=== PATIENT | male | born 1965 | race Caucasian/White ===

== ENCOUNTER 2018-12-01 14:25 | Emergency (ER) | payer MEDICARE, OTHER ==
[2018-12-01 14:37] VITALS: RESP 16; TEMP 98.2
[2018-12-01] MEDS ORDERED: LIDOCAINE 1% INJ 10MG/ML (20 ML MDV) SQ ONE (15:53)
[2018-12-01] MEDS ORDERED: DIPH,PERTUS(ACELL)TETVAC-LF 0.5 ML VIAL IM ONE (15:53)
[2018-12-01] MEDS ORDERED: ceFAZolin 1,000 MG VIAL IM STA (17:17)
--- NOTE | 2018-12-01 17:27 | XR ---
EXAMINATION TYPE: XR knee complete LT DATE OF EXAM: 12/01/2018 COMPARISON: NONE HISTORY: Laceration. Chainsaw injury. TECHNIQUE: 3 views FINDINGS: There is a small metal density in the soft tissues at the patella tendon. This could be a s urgical clip or foreign body. There is due to a limited by the bandages. I see no fracture nor disloc ation. There is no sign of any joint effusion. There is soft tissue swelling anterior to the patella. IMPRESSION: Possible foreign body. Soft tissue swelling. Limited exam. No fracture seen.
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
[2018-12-01 18:31] VITALS: BP 105/69; PULSE 79
[2018-12-01] MEDS ORDERED: CEPHALEXIN 500MG STARTER PACK 4 CAP BTL PO STA (18:37)
== END 2018-12-01 19:07 | disposition home or self-care (01) ==
LOC: EC 14:25
DX: S81.012A Laceration without foreign body, left knee, initial encounter (principal); Z23 Encounter for immunization; Z88.5 Allergy status to narcotic agent; Z53.29 Procedure and treatment not carried out because of patient's decision for other reasons; W29.3XXA Contact with powered garden and outdoor hand tools and machinery, initial encounter; Y93.89 Activity, other specified; Y92.89 Other specified places as the place of occurrence of the external cause
CPT/HCPCS: 73562; 90715; 99283; 12002; 96372; 90471; J0690; J2001